=== PATIENT | female | born 1995 | race African-American/Black ===

== ENCOUNTER 2016-11-15 13:27 | Emergency (ER) | payer MEDICAID ==
[~2016-11-15] VITALS: Ht 162.6 cm; Wt 88.5 kg
[2016-11-15 15:30] VITALS: BP 114/62
== END 2016-11-15 16:39 | disposition home or self-care (01) ==
LOC: ER 13:33
DX: S46.912A Strain of unspecified muscle, fascia and tendon at shoulder and upper arm level, left arm, initial encounter (principal); V49.9XXA Car occupant (driver) (passenger) injured in unspecified traffic accident, initial encounter; Y93.89 Activity, other specified; Y99.8 Other external cause status; Y92.488 Other paved roadways as the place of occurrence of the external cause
CPT/HCPCS: 73030